=== PATIENT | male | born 1970 | race Caucasian/White ===

== ENCOUNTER 2022-03-28 12:08 | Emergency (ER) | payer BC ==
[~2022-03-28] VITALS: Ht 180.3 cm; Wt 71.7 kg
--- NOTE | 2022-03-28 12:20 | NUR ---
BIBS C/O WEAKNESS ON HIS LEFT SIDE AND TINGLING 30 MINUTES PRIOR TO
--- NOTE | 2022-03-28 12:22 | NUR ---
established IV ilne right AC , blood sample obtained sent to lab
[2022-03-28 12:30] VITALS: BP 110/79
--- NOTE | 2022-03-28 12:30 | NUR ---
emt at bedside for EKG
--- NOTE | 2022-03-28 12:35 | NUR ---
taken to CT
--- NOTE | 2022-03-28 12:55 | NUR ---
corrections identification technician at bedside
[2022-03-28 12:56] LABS: SERUM AMMONIA 42 umol/L (11-32)
[2022-03-28 12:59] LABS: CALCIUM, SERUM 8.5 mg/dL (8.5-10.1); CARBON DIOXIDE 25 mmol/L (21-32); CHLORIDE 103 mmol/L (98-107); CREATININE 0.8 mg/dL (0.6-1.3); GLUCOSE 107 mg/dL (74-106); POTASSIUM 4.6 mmol/L (3.5-5.1); SODIUM SERUM 135 mmol/L (136-145); UREA NITROGEN, BLOOD 17 mg/dL (7-18)
--- NOTE | 2022-03-28 13:01 | NUR ---
covid swab done sent to lab
[2022-03-28 13:04] LABS: ALANINE AMINOTRANSFERASE 108 U/L (12-78); ALBUMIN 3.6 g/dL (3.4-5.0); ALKALINE PHOSPHATASE 165 U/L (46-116); ASPARTATE AMINOTRANSFERASE 109 U/L (15-37); BILIRUBIN,DIRECT 0.4 mg/dL (0.0-0.2); BILIRUBIN,TOTAL 3.6 mg/dL (0.2-1.0); TOTAL PROTEIN, SERUM 8.8 g/dL (6.4-8.2)
--- NOTE | 2022-03-28 13:32 | NUR ---
URINE SAMPLE OBTAINED SENT TO LAB .
[2022-03-28] MEDS ORDERED: [UNRECOGNIZED DRUG - CODE] PO (13:42)
--- NOTE | 2022-03-28 13:55 | NUR ---
MOVE SHEET SUBMITTED.
[2022-03-28 14:10] LABS: BASOPHILS # (AUTO) 2.6 K/uL (0.0-0.2); BASOPHILS % (AUTO) 3.4 % (0.0-2.0); EOSINOPHILS % (AUTO) 4.1 % (0.0-6.0); HEMATOCRIT 25 % (39-51); HEMOGLOBIN 7.3 g/dL (13.5-17.5); LYMPHOCYTES # (AUTO) 29.9 K/uL (0.8-4.8); LYMPHOCYTES % (AUTO) 39.9 % (20.0-44.0); MEAN CORPUSCULAR HGB CONC 30 g/dl (31.0-36.0); MEAN CORPUSCULAR VOLUME 109 fL (80-96); MONOCYTES # (AUTO) 6.2 K/uL (0.1-1.30); MONOCYTES % (AUTO) 8.3 % (2.0-12.0); NEUTROPHILS # (AUTO) 33.1 K/uL (1.8-8.9); NEUTROPHILS % (AUTO) 44.3 % (43.0-81.0); PLATELET COUNT (AUTO) 649 K/uL (150-450); RED BLOOD CELL COUNT(AUTO) 2.27 MIL/uL (4.5-6.0)
[2022-03-28 15:38] LABS: BAND % (MANUAL) 1 % (0.0-5.0); EOSINOPHILS % (MANUAL) 2 % (0-4); LYMPHOCYTES % (MANUAL) 49 % (16-48); MONOCYTES % (MANUAL) 8 % (0-11.0); NEUTROPHILS % (MANUAL) 40 (42-76)
[2022-03-28] MEDS ORDERED: ASPIRIN 325 MG TABLET ONE (15:44)
[2022-03-28] MEDS: ASPIRIN 325 MG TABLET PO ONE (15:48)
--- NOTE | 2022-03-28 15:48 | NUR ---
IV removed. Catheter intact and site benign. Pressure and 4x4 applied to site. No bleeding noted.
--- NOTE | 2022-03-28 15:48 | NUR ---
Patient discharged to home in stable condition. Written and verbal after care instructions given. Patient verbalizes understanding of instruction.
== END 2022-03-28 15:49 | disposition left against medical advice (07) ==
LOC: ER 12:40
DX: G45.9 Transient cerebral ischemic attack, unspecified (principal); R94.31 Abnormal electrocardiogram [ECG] [EKG]; Z20.822 Contact with and (suspected) exposure to COVID-19; Z53.29 Procedure and treatment not carried out because of patient's decision for other reasons; Z90.81 Acquired absence of spleen; C91.11 Chronic lymphocytic leukemia of B-cell type in remission; E83.119 Hemochromatosis, unspecified; D46.9 Myelodysplastic syndrome, unspecified; Z88.8 Allergy status to other drugs, medicaments and biological substances
CPT/HCPCS: 99291; 70450; 87426; 93005; 71045; 82140; 85025; 80048; 80076; 36415; 84484; 85730; 85007; C9803